=== PATIENT | male | born 1975 | race Caucasian/White ===

== ENCOUNTER 2020-09-21 18:21 | Emergency (ER) | payer OTHER ==
[~2020-09-21 18:21] MED LIST: ADALAT CC30 MG PO; BACTRIM DS TAB1 EACH PO; CATAPRES0.2 MG PO; CLARITIN10 MG PO; CLINDAMYCI600 MG/50 IV; COLCHICINE 0.60.6 MG PO; ECOTRIN81 MG PO; INDOCIN 50 MG C50 MG PO; MICROZIDE12.5 MG PO; NORCO 10-325 T1 EACH PO; PLETAL 100 MG100 MG PO; PREDNISONE 50 M50 MG PO; PREDNISONE20 MG PO; PROTONIX40 MG PO; RIFADIN300 MG PO; ULORIC80 MG PO; Voltaren Gel 1 % TOP
[2020-09-21 19:13] LABS: HEMOGLOBIN 16.9 gm/dl (14.0-17.5); RED BLOOD COUNT 5.78 M/UL (4.20-5.50); WHITE BLOOD COUNT 20.6 K/UL (4.5-11.0)
[2020-09-21 19:25] LABS: BUN/CREATININE RATIO 18 (0-10)
[2020-09-21] MEDS ORDERED: PERCOCET 5-3251 EACH PO (19:59)
[2020-09-21] MEDS ORDERED: LOPRESSOR 25 MG25 MG PO (20:08)
[2020-09-21] MEDS ORDERED: COLCHICINE 0.60.6 MG PO (20:11)
[2020-09-21] MEDS ORDERED: TORADOL 10 MG T10 MG PO (20:11)
== END 2020-09-21 20:49 | disposition home or self-care (01) ==
LOC: ER1 18:21
PROVIDERS: Physician Assistant
DX: M25.561 Pain in right knee (principal); I10 Essential (primary) hypertension; D72.829 Elevated white blood cell count, unspecified; M10.9 Gout, unspecified; K21.9 Gastro-esophageal reflux disease without esophagitis; F17.210 Nicotine dependence, cigarettes, uncomplicated; Z91.14 Patient's other noncompliance with medication regimen
CPT/HCPCS: 73562; 80053; 82550; 82553; 83605; 83874; 84484; 84550; 85025; 85652; 86140; 87040; 96374; 96375; 99284; J1885; J2270; J2405

== ENCOUNTER 2021-09-18 08:26 | Inpatient (IN) | payer OTHER ==
[~2021-09-18] VITALS: Ht 182.9 cm; Wt 127.0 kg
[~2021-09-18 08:26] MED LIST changes: +LOPRESSOR 25 MG25 MG PO; +PERCOCET 5-3251 EACH PO; +TORADOL 10 MG T10 MG PO
[2021-09-18 09:57] LABS: BUN/CREATININE RATIO 18 (0-10)
[2021-09-18 10:15] LABS: HEMOGLOBIN 14.7 gm/dl (14.0-17.5); RED BLOOD COUNT 5.06 M/UL (4.20-5.50)
[2021-09-19 03:42] LABS: BUN/CREATININE RATIO 19 (0-10)
[2021-09-19 03:45] LABS: HEMOGLOBIN 15.5 gm/dl (14.0-17.5); RED BLOOD COUNT 5.32 M/UL (4.20-5.50); WHITE BLOOD COUNT 12.9 K/UL (4.5-11.0)
[2021-09-19] MEDS ORDERED: AMLODIPINE BESYL5 MG PO (08:52)
[2021-09-19] MEDS ORDERED: PROAIR HFA8.5 GM INH (08:52)
[2021-09-19] MEDS ORDERED: LEVOFLOXACIN500 MG PO (08:52)
[2021-09-19] MEDS ORDERED: MEDROL4 MG PO (08:55)
[2021-09-19] MEDS ORDERED: ASPIRIN EC81 MG PO (10:30)
[2021-09-19] MEDS ORDERED: ISOSORBIDE MONO30 MG PO (10:30)
[2021-09-20 06:52] LABS: BUN/CREATININE RATIO 21 (0-10)
[2021-09-20 07:01] LABS: HEMOGLOBIN 16.6 gm/dl (14.0-17.5); RED BLOOD COUNT 5.74 M/UL (4.20-5.50)
[2021-09-20 07:02] LABS: WHITE BLOOD COUNT 19.1 K/UL (4.5-11.0)
[2021-09-20] MEDS ORDERED: METOPROLOL SUCC25 MG PO (12:16)
[2021-09-20] MEDS ORDERED: COZAAR 25MG TAB25 MG PO (12:29)
[2021-09-20] MEDS ORDERED: FUROSEMIDE40 MG PO (12:29)
[2021-09-20] MEDS ORDERED: ALDACTONE 25MG25 MG PO (12:29)
[2021-09-20] MEDS ORDERED: ATORVASTATIN CA10 MG PO (12:33)
--- NOTE | 2021-09-20 16:42 | NUR ---
TR BAND REMOVED. SITE CDI. NO SWELLING. NO BRUISING. SITE COVERED WITH LARGE BANDAID. ARM BOARD LEFT ON PATIENT. HE WAS INSTRUCTED TO NOT USE RIGHT WRIST X 24 HOURS AT LEAST. DOUGTM.
== END 2021-09-20 20:30 | disposition home or self-care (01) | DRG 286 ==
LOC: ER1 08:26 → CDU 13:39 → MED SURG 4 13:39
PROVIDERS: Internal Medicine; Nurse Practitioner; Physician Assistant; ADMIT Internal Medicine
PROC: B24BZZZ Ultrasonography of Heart with Aorta (ICD-10-PCS; principal; 2021-09-19)
PROC: 4A023N7 Measurement of Cardiac Sampling and Pressure, Left Heart, Percutaneous Approach (ICD-10-PCS; 2021-09-20)
PROC: B2011ZZ Plain Radiography of Multiple Coronary Arteries using Low Osmolar Contrast (ICD-10-PCS; 2021-09-20)
DX: I13.0 Hypertensive heart and chronic kidney disease with heart failure and stage 1 through stage 4 chronic kidney disease, or unspecified chronic kidney disease (principal); J18.9 Pneumonia, unspecified organism; I50.21 Acute systolic (congestive) heart failure; J44.0 Chronic obstructive pulmonary disease with (acute) lower respiratory infection; Z20.822 Contact with and (suspected) exposure to COVID-19; I42.8 Other cardiomyopathies; I25.10 Atherosclerotic heart disease of native coronary artery without angina pectoris; K21.9 Gastro-esophageal reflux disease without esophagitis; Z96.698 Presence of other orthopedic joint implants; N18.9 Chronic kidney disease, unspecified; I08.1 Rheumatic disorders of both mitral and tricuspid valves; F17.210 Nicotine dependence, cigarettes, uncomplicated; E66.9 Obesity, unspecified; Z89.112 Acquired absence of left hand; Z82.49 Family history of ischemic heart disease and other diseases of the circulatory system; Z80.9 Family history of malignant neoplasm, unspecified
CPT/HCPCS: ECHO; 0240U; 36415; 71045; 71046; 80048; 80053; 80061; 80307; 81001; 82550; 82553; 83605; 83735; 83880; 84484; 85025; 85027; 85379; 87040; 93005; 93306; 94640; 94664; 96374; 99152; 99285; C1769; C1894; J0456; J0696; J1644; J1940; J2250; J3010; J7030; J7040; Q9967

== ENCOUNTER 2022-01-06 07:20 | Inpatient (IN) | payer OTHER ==
[~2022-01-06] VITALS: Ht 182.9 cm; Wt 134.4 kg
[~2022-01-06 07:20] MED LIST changes: +ALDACTONE 25MG25 MG PO; +AMLODIPINE BESYL5 MG PO; +ASPIRIN EC81 MG PO; +ATORVASTATIN CA10 MG PO; +COZAAR 25MG TAB25 MG PO; +FUROSEMIDE40 MG PO; +ISOSORBIDE MONO30 MG PO; +LEVOFLOXACIN500 MG PO; +MEDROL4 MG PO; +METOPROLOL SUCC25 MG PO; +PROAIR HFA8.5 GM INH
[2022-01-06 08:29] LABS: HEMOGLOBIN 15.9 gm/dl (14.0-17.5); RED BLOOD COUNT 5.48 M/UL (4.20-5.50); WHITE BLOOD COUNT 13.1 K/UL (4.5-11.0)
[2022-01-06 09:05] LABS: BUN/CREATININE RATIO 17 (0-10)
[2022-01-06] MEDS ORDERED: AMLODIPINE BESYL5 MG PO (12:41)
[2022-01-06] MEDS ORDERED: ISOSORBIDE MONO30 MG PO (12:41)
[2022-01-07 02:22] LABS: HEMOGLOBIN 15.9 gm/dl (14.0-17.5); RED BLOOD COUNT 5.48 M/UL (4.20-5.50); WHITE BLOOD COUNT 12.8 K/UL (4.5-11.0)
[2022-01-07 02:39] LABS: BUN/CREATININE RATIO 21 (0-10)
--- NOTE | 2022-01-07 15:25 | NUR ---
CALLED DR. FLORES AND GOT A VERBAL ORDER TO ALLOW THE PT TO COME OFF THE HEART MONITOR TO ALLOW HIM TO SHOW
[2022-01-08 06:50] LABS: HEMOGLOBIN 16.6 gm/dl (14.0-17.5); RED BLOOD COUNT 5.71 M/UL (4.20-5.50); WHITE BLOOD COUNT 12.8 K/UL (4.5-11.0)
[2022-01-08 07:33] LABS: BUN/CREATININE RATIO 24 (0-10)
--- NOTE | 2022-01-08 16:50 | NUR ---
PT HAD A 5 BEAT RUN OF [facility] AT 1523, NOTIFIED DR. FLORES
[2022-01-09 02:38] LABS: HEMOGLOBIN 17.4 gm/dl (14.0-17.5); RED BLOOD COUNT 5.97 M/UL (4.20-5.50)
[2022-01-10 04:43] LABS: HEMOGLOBIN 17.6 gm/dl (14.0-17.5); RED BLOOD COUNT 5.97 M/UL (4.20-5.50); WHITE BLOOD COUNT 15.2 K/UL (4.5-11.0)
[2022-01-11 02:53] LABS: HEMOGLOBIN 17.3 gm/dl (14.0-17.5); RED BLOOD COUNT 5.87 M/UL (4.20-5.50); WHITE BLOOD COUNT 17.9 K/UL (4.5-11.0)
[2022-01-11 16:48] LABS: HEMOGLOBIN 16.6 gm/dl (14.0-17.5); RED BLOOD COUNT 5.6 M/UL (4.20-5.50); WHITE BLOOD COUNT 20.4 K/UL (4.5-11.0)
[2022-01-12 03:33] LABS: HEMOGLOBIN 16.6 gm/dl (14.0-17.5); RED BLOOD COUNT 5.6 M/UL (4.20-5.50); WHITE BLOOD COUNT 17.2 K/UL (4.5-11.0)
[2022-01-12 04:05] LABS: BUN/CREATININE RATIO 28 (0-10)
[2022-01-13 09:05] LABS: HEMOGLOBIN 16.5 gm/dl (14.0-17.5); RED BLOOD COUNT 5.7 M/UL (4.20-5.50)
[2022-01-13 09:06] LABS: WHITE BLOOD COUNT 12.3 K/UL (4.5-11.0)
[2022-01-13 15:52] LABS: RBC (AUTOMATED) 7500 (0-2000); WBC (AUTOMATED) 25150 (0-200)
[2022-01-13 15:53] LABS: MONONUCLEAR CELLS 21.4 (75-100); POLYMORPHONUCLEAR % 78.6 (0-25)
[2022-01-14 07:18] LABS: HEMOGLOBIN 16.5 gm/dl (14.0-17.5); RED BLOOD COUNT 5.69 M/UL (4.20-5.50); WHITE BLOOD COUNT 12.5 K/UL (4.5-11.0)
[2022-01-15 02:37] LABS: HEMOGLOBIN 15.7 gm/dl (14.0-17.5); RED BLOOD COUNT 5.42 M/UL (4.20-5.50); WHITE BLOOD COUNT 12.1 K/UL (4.5-11.0)
[2022-01-16 06:22] LABS: RED BLOOD COUNT 5.56 M/UL (4.20-5.50); WHITE BLOOD COUNT 11.3 K/UL (4.5-11.0)
[2022-01-16 06:52] LABS: BUN/CREATININE RATIO 22 (0-10)
[2022-01-16 13:09] LABS: LDH, BODY FLUID 810 IU/L (.); PROTEIN, BODY FLUID 4.7 g/dL (.)
[2022-01-17 03:16] LABS: HEMOGLOBIN 16.3 gm/dl (14.0-17.5); RED BLOOD COUNT 5.64 M/UL (4.20-5.50); WHITE BLOOD COUNT 10.6 K/UL (4.5-11.0)
[2022-01-17 04:36] LABS: BUN/CREATININE RATIO 25 (0-10)
[2022-01-18 03:47] LABS: HEMOGLOBIN 15.6 gm/dl (14.0-17.5); RED BLOOD COUNT 5.48 M/UL (4.20-5.50); WHITE BLOOD COUNT 10.1 K/UL (4.5-11.0)
[2022-01-18 04:02] LABS: BUN/CREATININE RATIO 29 (0-10)
[2022-01-19 02:19] LABS: HEMOGLOBIN 16.2 gm/dl (14.0-17.5); RED BLOOD COUNT 5.63 M/UL (4.20-5.50); WHITE BLOOD COUNT 9.8 K/UL (4.5-11.0)
[2022-01-19 02:39] LABS: BUN/CREATININE RATIO 21 (0-10)
[2022-01-20 03:07] LABS: HEMOGLOBIN 15.9 gm/dl (14.0-17.5); RED BLOOD COUNT 5.56 M/UL (4.20-5.50); WHITE BLOOD COUNT 9.7 K/UL (4.5-11.0)
[2022-01-20 03:23] LABS: BUN/CREATININE RATIO 28 (0-10)
[2022-01-21 06:04] LABS: HEMOGLOBIN 15.7 gm/dl (14.0-17.5); RED BLOOD COUNT 5.46 M/UL (4.20-5.50); WHITE BLOOD COUNT 8.6 K/UL (4.5-11.0)
[2022-01-21 06:28] LABS: BUN/CREATININE RATIO 25 (0-10)
[2022-01-21] MEDS ORDERED: CEPHALEXIN500 MG PO (10:23)
[2022-01-21] MEDS ORDERED: COLCHICINE 0.60.6 MG PO (10:23)
[2022-01-21] MEDS ORDERED: ENTRESTO 49 MG1 EACH PO (10:23)
[2022-01-21] MEDS ORDERED: FUROSEMIDE40 MG PO (10:23)
[2022-01-21] MEDS ORDERED: JANTOVEN10 MG PO (10:27)
== END 2022-01-21 13:45 | disposition home or self-care (01) | DRG 291 ==
LOC: ER1 07:20 → CDU 12:13 → M/S 12:13
PROVIDERS: Internal Medicine; Physician Assistant; ADMIT Internal Medicine
PROC: B24BZZZ Ultrasonography of Heart with Aorta (ICD-10-PCS; 2022-01-08)
PROC: 0S9G3ZX Drainage of Left Ankle Joint, Percutaneous Approach, Diagnostic (ICD-10-PCS; principal; 2022-01-12)
DX: I11.0 Hypertensive heart disease with heart failure (principal); I50.23 Acute on chronic systolic (congestive) heart failure; I47.1 Supraventricular tachycardia; N17.9 Acute kidney failure, unspecified; Z68.41 Body mass index [BMI] 40.0-44.9, adult; Z20.822 Contact with and (suspected) exposure to COVID-19; M10.072 Idiopathic gout, left ankle and foot; I42.8 Other cardiomyopathies; I42.0 Dilated cardiomyopathy; E78.5 Hyperlipidemia, unspecified; J40 Bronchitis, not specified as acute or chronic; I08.1 Rheumatic disorders of both mitral and tricuspid valves; F17.210 Nicotine dependence, cigarettes, uncomplicated; M25.472 Effusion, left ankle; I25.10 Atherosclerotic heart disease of native coronary artery without angina pectoris; E66.01 Morbid (severe) obesity due to excess calories; Z96.698 Presence of other orthopedic joint implants; Z79.01 Long term (current) use of anticoagulants; Z79.82 Long term (current) use of aspirin; Z91.14 Patient's other noncompliance with medication regimen; Z98.890 Other specified postprocedural states; Z82.49 Family history of ischemic heart disease and other diseases of the circulatory system; Z80.8 Family history of malignant neoplasm of other organs or systems
CPT/HCPCS: ECHO; 36415; 71045; 73610; 73630; 73718; 80048; 80053; 80202; 80307; 82550; 82553; 82945; 83036; 83605; 83615; 83735; 83880; 84157; 84439; 84443; 84484; 84550; 85025; 85027; 85379; 85610; 85652; 86140; 87070; 87205; 93005; 93306; 93970; 94640; 94664; 94760; 96372; 96374; 96376; 99285; G0378; J0696; J1170; J1650; J1940; J2185; J2270; J3370; J7070; Q9967; U0002

== ENCOUNTER 2022-01-24 13:46 | Emergency (ER) | payer OTHER | END 2022-01-24 16:35 | disposition home or self-care (01) | LOC: ER1 13:46 | DX: D68.9 Coagulation defect, unspecified (principal); I11.0 Hypertensive heart disease with heart failure; I50.9 Heart failure, unspecified | CPT/HCPCS: 85610; 85730; 93005; 99283 ==

== ENCOUNTER → 2022-01-24 | Outpatient (CLI) | payer OTHER ==
[~2022-01-24] MED LIST changes: +CEPHALEXIN500 MG PO; +ENTRESTO 49 MG1 EACH PO; +JANTOVEN10 MG PO
== END ==
LOC: LAB 09:35
DX: I21.9 Acute myocardial infarction, unspecified (principal)
CPT/HCPCS: 36415; 85610

== ENCOUNTER 2022-01-30 08:32 | Observation (INO) | payer OTHER ==
[~2022-01-30] VITALS: Ht 182.9 cm; Wt 131.5 kg
[2022-01-30 09:13] LABS: HEMOGLOBIN 17.1 gm/dl (14.0-17.5); RED BLOOD COUNT 5.89 M/UL (4.20-5.50); WHITE BLOOD COUNT 13.1 K/UL (4.5-11.0)
[2022-01-31 02:37] LABS: HEMOGLOBIN 16.7 gm/dl (14.0-17.5); RED BLOOD COUNT 5.78 M/UL (4.20-5.50); WHITE BLOOD COUNT 11.8 K/UL (4.5-11.0)
[2022-01-31 02:58] LABS: BUN/CREATININE RATIO 22 (0-10)
[2022-01-31 03:54] LABS: KPC-CARBAPENEM-RESISTANCE GENE Not Detected (Negative); vanA/B (VANCOMYCIN RESIST GENE Not Detected (Negative)
[2022-01-31 03:55] LABS: CANDIDA ALBICANS Not Detected (Negative); CANDIDA KRUSEI Not Detected (Negative); CANDIDA TROPICALIS Not Detected (Negative); ESCHERICHIA COLI Not Detected (Negative); HAEMOPHILUS INFLUENZAE Not Detected (Negative); KLEBSIELLA OXYTOCA Not Detected (Negative); KLEBSIELLA PNEUMONIAE Not Detected (Negative); PROTEUS Not Detected (Negative); PSEUDOMONAS AERUGINOSA Not Detected (Negative); SERRATIA MARCESANS Not Detected (Negative); STAPHYLOCOCCUS Not Detected (Negative); STAPHYLOCOCCUS AUREUS Not Detected (Negative); STREP AGALACTIAE (GROUP B) Not Detected (Negative); STREP PYOGENES (GROUP A) Not Detected (Negative)
[2022-01-31 05:27] LABS: STREPTOCOCCUS DETECTED (Negative)
[2022-02-01 05:05] LABS: BUN/CREATININE RATIO 28 (0-10)
[2022-02-01] MEDS ORDERED: COLCHICINE 0.60.6 MG PO (09:41)
== END 2022-02-01 12:42 | disposition home or self-care (01) ==
LOC: ER1 08:32 → CDU 13:46 → M/S 13:46
PROVIDERS: Emergency Medicine; Physician Assistant Medical; ADMIT Internal Medicine
DX: M10.9 Gout, unspecified (principal); I25.2 Old myocardial infarction; I11.0 Hypertensive heart disease with heart failure; I50.22 Chronic systolic (congestive) heart failure; I25.10 Atherosclerotic heart disease of native coronary artery without angina pectoris; I42.8 Other cardiomyopathies; E78.5 Hyperlipidemia, unspecified; F17.210 Nicotine dependence, cigarettes, uncomplicated; Z79.82 Long term (current) use of aspirin; Z79.899 Other long term (current) drug therapy
CPT/HCPCS: 36415; 80048; 80053; 80202; 83605; 83735; 84550; 85025; 85027; 85610; 85652; 87040; 87077; 87150; 93005; 93971; 96372; 96374; 96375; 96376; 99284; G0378; J0696; J1650; J2270; J2930; J3370; J7070

== ENCOUNTER → 2022-02-14 | Outpatient (CLI) | payer OTHER | LOC: EROP 10:39 | DX: U07.1 COVID-19 (principal); Z23 Encounter for immunization | CPT/HCPCS: M0222; Q0222 ==

== ENCOUNTER → 2022-02-14 | Outpatient (CLI) | payer OTHER ==
[2022-02-14 14:01] LABS: HEMOGLOBIN 18.7 gm/dl (14.0-17.5); RED BLOOD COUNT 6.59 M/UL (4.20-5.50); WHITE BLOOD COUNT 7.6 K/UL (4.5-11.0)
== END ==
LOC: LAB 13:27
PROVIDERS: Nurse Practitioner Family
DX: I50.9 Heart failure, unspecified (principal)
CPT/HCPCS: 36415; 80053; 85025

== ENCOUNTER 2022-03-29 09:44 | Emergency (ER) | payer OTHER ==
[~2022-03-29 09:44] MED LIST changes: -CLINDAMYCIN HC300 MG PO; -COLCHICINE0.6 MG PO; -OMEPRAZOLE40 MG PO; -WARFARIN SODIUM10 MG PO
[2022-03-29 10:48] LABS: HEMOGLOBIN 15.8 gm/dl (14.0-17.5); RED BLOOD COUNT 5.65 M/UL (4.20-5.50); WHITE BLOOD COUNT 13.3 K/UL (4.5-11.0)
[2022-03-29 11:12] LABS: BUN/CREATININE RATIO 17 (0-10)
[2022-03-29] MEDS ORDERED: CLINDAMYCIN HC300 MG PO (13:41)
[2022-03-29] MEDS ORDERED: COLCHICINE0.6 MG PO (13:41)
[2022-03-30] MEDS ORDERED: ENTRESTO 49 MG1 EACH PO (12:19)
[2022-03-30] MEDS ORDERED: COLCHICINE0.6 MG PO (12:19)
[2022-03-30] MEDS ORDERED: OMEPRAZOLE40 MG PO (12:19)
[2022-03-30] MEDS ORDERED: FUROSEMIDE40 MG PO (12:20)
[2022-03-30] MEDS ORDERED: WARFARIN SODIUM10 MG PO (12:20)
[2022-03-30] MEDS ORDERED: PROAIR HFA8.5 GM INH (12:20)
== END 2022-03-29 14:36 | disposition home or self-care (01) ==
LOC: ER1 09:44
PROVIDERS: Physician Assistant Medical
DX: L03.115 Cellulitis of right lower limb (principal); Z79.01 Long term (current) use of anticoagulants
CPT/HCPCS: 73630; 80053; 84550; 85025; 99283

== ENCOUNTER → 2022-03-29 | Outpatient (CLI) | payer OTHER ==
[~2022-03-29] MED LIST changes: +CLINDAMYCIN HC300 MG PO; +COLCHICINE0.6 MG PO; +OMEPRAZOLE40 MG PO; +WARFARIN SODIUM10 MG PO
[2022-03-29 10:00] LABS: HEMOGLOBIN 16.5 gm/dl (14.0-17.5); RED BLOOD COUNT 5.9 M/UL (4.20-5.50); WHITE BLOOD COUNT 12.6 K/UL (4.5-11.0)
[2022-03-29 10:36] LABS: BUN/CREATININE RATIO 19 (0-10)
== END ==
LOC: LAB 09:07
PROVIDERS: Internal Medicine Cardiovascular Disease
DX: I42.0 Dilated cardiomyopathy (principal); I50.22 Chronic systolic (congestive) heart failure; I51.3 Intracardiac thrombosis, not elsewhere classified; I45.4 Nonspecific intraventricular block
CPT/HCPCS: 36415; 71046; 80048; 85025; 85610

== ENCOUNTER 2022-03-30 09:14 | Inpatient (IN) | payer OTHER ==
[~2022-03-30] VITALS: Ht 182.9 cm; Wt 133.8 kg
[~2022-03-30 09:14] MED LIST changes: +CLINDAMYCIN HC300 MG PO; +COLCHICINE0.6 MG PO
[2022-03-30 10:11] LABS: HEMOGLOBIN 16.2 gm/dl (14.0-17.5); RED BLOOD COUNT 5.74 M/UL (4.20-5.50); WHITE BLOOD COUNT 13.8 K/UL (4.5-11.0)
[2022-03-30 10:38] LABS: BUN/CREATININE RATIO 19 (0-10)
[2022-03-30] MEDS ORDERED: COLCHICINE0.6 MG PO (12:19)
[2022-03-30] MEDS ORDERED: ENTRESTO 49 MG1 EACH PO (12:19)
[2022-03-30] MEDS ORDERED: OMEPRAZOLE40 MG PO (12:19)
[2022-03-30] MEDS ORDERED: FUROSEMIDE40 MG PO (12:20)
[2022-03-30] MEDS ORDERED: WARFARIN SODIUM10 MG PO (12:20)
[2022-03-30] MEDS ORDERED: PROAIR HFA8.5 GM INH (12:20)
[2022-03-31 05:17] LABS: HEMOGLOBIN 14.6 gm/dl (14.0-17.5); RED BLOOD COUNT 5.23 M/UL (4.20-5.50); WHITE BLOOD COUNT 13.8 K/UL (4.5-11.0)
[2022-03-31 05:45] LABS: BUN/CREATININE RATIO 19 (0-10)
[2022-04-02 16:56] LABS: WBC (AUTOMATED) 18960 10^3
[2022-04-02 16:57] LABS: MONONUCLEAR CELLS 8 %; POLYMORPHONUCLEAR 92 %; RBC (AUTOMATED) 2700 10^6
[2022-04-03 09:55] LABS: BUN/CREATININE RATIO 29 (0-10)
[2022-04-04 05:45] LABS: HEMOGLOBIN 14.4 gm/dl (14.0-17.5); RED BLOOD COUNT 5.1 M/UL (4.20-5.50); WHITE BLOOD COUNT 8.9 K/UL (4.5-11.0)
[2022-04-04 06:00] LABS: BUN/CREATININE RATIO 29 (0-10)
[2022-04-04] MEDS ORDERED: ENOXAPARIN150 MG/1 M SC (15:14)
[2022-04-04] MEDS ORDERED: COLCHICINE0.6 MG PO (15:14)
[2022-04-04] MEDS ORDERED: CLEOCIN HCL300 MG PO (15:18)
[2022-04-04] MEDS ORDERED: HYDROCODON-ACE1 EAC4 PO (15:21)
[2022-04-04] MEDS ORDERED: LOVENOX150 MG/1 M SQ (15:42)
[2022-04-04] MEDS ORDERED: ALLOPURINOL100 MG PO (16:27)
[2022-04-04] MEDS ORDERED: MEDROL DOSEPAK 24 MG PO (18:28)
[2022-04-10 12:13] LABS: PROTEIN, BODY FLUID 4.4 g/dL (.)
== END 2022-04-04 19:54 | disposition home or self-care (01) | DRG 603 ==
LOC: ER1 09:14 → MED SURG 4 14:10 → CDU 14:10 → MED SURG 4 16:27
PROVIDERS: Internal Medicine; Physician Assistant; Physician Assistant Medical; ADMIT Internal Medicine
PROC: 0S9F3ZZ Drainage of Right Ankle Joint, Percutaneous Approach (ICD-10-PCS; principal; 2022-04-01)
DX: L03.115 Cellulitis of right lower limb (principal); I42.0 Dilated cardiomyopathy; I50.22 Chronic systolic (congestive) heart failure; Z68.41 Body mass index [BMI] 40.0-44.9, adult; E87.1 Hypo-osmolality and hyponatremia; M25.461 Effusion, right knee; M10.9 Gout, unspecified; I34.0 Nonrheumatic mitral (valve) insufficiency; I11.0 Hypertensive heart disease with heart failure; E66.01 Morbid (severe) obesity due to excess calories; K21.9 Gastro-esophageal reflux disease without esophagitis; F17.210 Nicotine dependence, cigarettes, uncomplicated; Z96.698 Presence of other orthopedic joint implants; Z89.112 Acquired absence of left hand; Z82.49 Family history of ischemic heart disease and other diseases of the circulatory system; Z80.9 Family history of malignant neoplasm, unspecified; Z79.01 Long term (current) use of anticoagulants
CPT/HCPCS: 36415; 73562; 73630; 73721; 80048; 80053; 80202; 82945; 83605; 83615; 84157; 84550; 85025; 85027; 85610; 85652; 86140; 87040; 87070; 87205; 89051; 89060; 93926; 93971; 94640; 94664; 94760; 96374; 96375; 96376; 97161; 99285; G0378; J1650; J2270; J2405; J2543; J3370; J7030; J7040; J7070